=== PATIENT | male | born 1960 | race Caucasian/White ===

== ENCOUNTER 2018-05-29 22:37 | Emergency (ER) | payer BC ==
[~2018-05-29] VITALS: Ht 170.2 cm; Wt 93.7 kg
[2018-05-29 22:52] VITALS: Ht 170.2 cm; Wt 93.7 kg
[2018-05-29 23:16] VITALS: BP 117/73
== END 2018-05-29 23:16 | disposition home or self-care (01) ==
LOC: ED 22:37
DX: S05.02XA Injury of conjunctiva and corneal abrasion without foreign body, left eye, initial encounter (principal); H10.13 Acute atopic conjunctivitis, bilateral; E78.00 Pure hypercholesterolemia, unspecified; X58.XXXA Exposure to other specified factors, initial encounter; Y93.H2 Activity, gardening and landscaping; Y92.89 Other specified places as the place of occurrence of the external cause; Y99.8 Other external cause status